=== PATIENT | male | born 1965 | race Caucasian/White ===

== ENCOUNTER → 2022-01-17 07:45 | Outpatient (CLI) | payer SELFPAY ==
--- NOTE | 2022-01-17 08:25 | MRI_ITS ---
STUDY: MRI LUMBAR SPINE WITHOUT CONTRAST REASON FOR EXAM: Male, 56 years old. BACK PAIN TECHNIQUE: Standardized fat and water weighted pulse sequences were obtained in the sagittal and axial planes. COMPARISON: Lumbar spine radiographs 01/17/2022. FINDINGS: T10-T11: (Sagittal only). Normal T10 inferior endplate. Minimal anterior wedging of T11 superior endplate is presumably from remote injury. Mild disc space height narrowing. Minimal ventral extradural defect due to tiny posterior bulging annulus. Normal central canal and bilateral intervertebral neural foramina. T11-T12: (Sagittal only). Normal endplates. Moderate disc space height narrowing. Mild ventral extradural defect due to small posterior bulging annulus. Normal central canal and bilateral intervertebral neural foramina. Prominent left-sided T11 benign vertebral body hemangioma. T12-L1: (Sagittal only). Minimal anterior wedging of T12 inferior endplate is from remote injury. Normal L1 superior endplate. Moderate disc space height narrowing. Normal central canal and bilateral intervertebral neural foramina. Normal lumbar lordosis. There is no substantial scoliosis. Normal conus medullaris that terminates at the upper L1 vertebral body level. L1-2: Normal endplates. Moderate disc space height narrowing. Mild degenerative retrolisthesis of L1 on L2. Mild bilateral degenerative facet arthropathy. Normal central canal and bilateral lateral recesses. Prominent dorsal epidural lipomatosis. Normal bilateral intervertebral neural foramina. L2-3: Normal endplates. Normal disc height. Mild asymmetric degenerative facet arthropathy. Minimal left ventral extradural defect is posterior bulging annulus. Moderate central canal stenosis with an AP canal diameter of 7.6 mm. Prominent dorsal epidural lipomatosis. Normal bilateral lateral recesses. Mild stenosis of the left intervertebral neural foramen. Normal right intervertebral neural foramen. L3-4: Normal endplates. Normal disc height, hydration and morphology. Mild to moderate bilateral degenerative facet arthropathy. 6 mm right medial synovial cyst causing right dorsolateral extradural defect and right lateral recess stenosis. Normal left lateral recess. Moderately pronounced central canal stenosis with an AP canal diameter of 6 mm. Normal bilateral intervertebral neural foramina. L4-5: Normal endplates. Mild disc space height narrowing. Mild degenerative retrolisthesis of L4 on L5. Moderate asymmetric degenerative facet arthropathy. Normal central canal and bilateral lateral recesses. Moderate stenosis of the bilateral intervertebral neural foramina. L5-S1: Ankylosis of the L5 and S1 vertebral bodies. Grade 2 anterolisthesis of L5 on S1. Bilateral L5 pars defects. Hypoplastic facet joints. Severe stenosis of the left intervertebral neural foramen. Moderate stenosis of the right intervertebral neural foramen. Normal visualized sacral ala. Normal visualized paraspinous soft tissue structures. MRI/Spine Lumbar (Routine) IMPRESSION: 1. Severe stenosis of the left L5-S1 intervertebral neural foramen, moderate stenosis of the right L5-S1 intervertebral neural foramen, bilateral L5 pars defects with grade 2 anterolisthesis of L5 on S1 and ankylosis of the L5 and S1 vertebral bodies. 2. 6 mm right medial synovial cyst at L3-L4 disc space level causing right dorsolateral extradural defect and right lateral recess stenosis. Additionally, moderate pronounced central canal stenosis with an AP canal diameter of 6 mm. 3. Moderate central canal stenosis at L2-L3 disc space level with an AP canal diameter of 7.6 mm. 4. Prominent left-sided T11 benign vertebral body hemangioma. 5. No MRI evidence of lumbar extruded disc fragment. Electronically Signed: Roberth Allen MD at 9:49 EDT ,
--- NOTE | 2022-01-17 09:15 | RAD_ITS ---
History: M54.5 Lumbar spine 5 views: Findings: No fracture or subluxation. Bilateral L5 spondylolysis noted with grade 2-3 L5-S1 spondylolisthesis. Disc space narrowing and prominent vertebral body hypertrophy noted that the lower thoracic and upper lumbar level. Facet arthropathy present at L4-5 and L5-S1. IMPRESSION: L5 spondylolysis with grade 2-3 spondylolisthesis. Prominent spondylosis of the lower thoracic and upper lumbar spine. at 1039 Reported and signed by: Real Sigala MD Electronically Signed: Real Sigala MD at 10:38 EDT , RAD/L/S Spine Min 4 Views
== END ==
PROVIDERS: PCP Nurse Practitioner Family
DX: M99.03 Segmental and somatic dysfunction of lumbar region (principal); M54.41 Lumbago with sciatica, right side
CPT/HCPCS: 72110; 72148